=== PATIENT | male | born 1995 | race Caucasian/White ===

== ENCOUNTER 2022-10-02 11:48 | Emergency (ER) | payer SELFPAY ==
[2022-10-02 12:05] VITALS: BP 134/84; PULSE 73; RESP 18; TEMP 36.2; O2SAT 99; BMI 26.1
[2022-10-02 12:17] VITALS: BP 133/78; O2SAT 99
[2022-10-02] MEDS: sodium chloride 0.9% 1,000 ML 999 ML IV (12:20)
--- NOTE | 2022-10-02 12:22 | CTR_ITS ---
PROCEDURE INFORMATION: Exam: CT Abdomen And Pelvis Without Contrast Exam date and time: 10/02/2022 12:58 PM Age: 26 years old Clinical indication: Abdominal pain; Flank; Right; Additional info: Right flank and dysuria TECHNIQUE: Imaging protocol: Computed tomography of the abdomen and pelvis without contrast. Axial, coronal and sagittal reformatted images were created and reviewed. Radiation optimization: All CT scans at this facility use at least one of these dose optimization techniques: automated exposure control; mA and/or kV adjustment per patient size (includes targeted exams where dose is matched to clinical indication); or iterative reconstruction. Other protocol: This patient has received 0 known CTs and 0 known cardiac nuclear medicine studies in the 12 months prior to the current study. COMPARISON: No relevant prior studies available. RADIATION DOSE METRICS: Total DLP (mGy-cm): 795.23 FINDINGS: Liver: Unremarkable. Gallbladder and bile ducts: No radiodense gallstones. No biliary ductal dilatation. Pancreas: Unremarkable. Spleen: Unremarkable. Adrenal glands: Normal. No mass. Kidneys and ureters: Mild right-sided hydroureteronephrosis and perinephric/periureteral stranding, secondary to a 3 mm distal right ureteral calculus (axial image 209 and coronal image 86). Stomach and bowel: No bowel wall thickening. No obstruction. No pneumatosis. Appendix: Normal. Intraperitoneal space: No free fluid. No organized fluid collection. No free air. Vasculature: Unremarkable. No aneurysm. Lymph nodes: No pathologically enlarged lymph nodes. Urinary bladder: Unremarkable as visualized. Reproductive: Unremarkable. Bones/joints: No acute osseous abnormality. Soft tissues: Tiny, fat containing umbilical hernia. CT/CT kidney stone [id number] IMPRESSION: 1. Mild right-sided hydroureteronephrosis and perinephric/periureteral stranding, secondary to a 3 mm distal right ureteral calculus. 2. Additional findings, as above.
--- NOTE | 2022-10-02 12:23 | W.ED.MALEGU ---
Documented by User: LYLE Motta 10/02/22 20:40 HPI - Male Genitourinary General: Chief complaint: Urogenital-Male Stated complaint: urinary pain Time Seen by Provider: 10/02/22 12:12 History of Present Illness: Patient is a 26-year-old male comes to the ED with right flank pain and dysuria. Symptoms started about a week ago. He for started developing right flank pain about a week ago. he says the pain comes in waves and will be 10 out of 10 pain. Currently he says his right flank pain is mild. He has never had a kidney stone before. His father and brother have both had kidney stones. Denies any n/v or fevers. Associated symptoms: Reports dysuria; Deny hematuria, nausea or vomiting Review of Systems Const: Denies: fever(s), chills or fatigue Eyes: Denies: change in vision or eye discomfort ENMT: Denies: throat pain, odynophagia, nasal discharge or nasal congestion Card: Denies: chest pain, palpitations, edema, swelling of feet/ankles, dyspnea on exertion or orthopnea Resp: Denies: dyspnea, productive cough or non-productive cough GI: Denies: abdominal pain, nausea, vomiting, diarrhea, constipation or hematochezia : Reports: flank pain (right flank) and dysuria; Denies: difficulty urinating or hematuria Musc: Denies: neck pain, back pain or extremity swelling Skin/Breast: Denies: rash or new lesions Neuro: Denies: headache(s), numbness in extremities or weakness in extremities [facility] ED PFSH: Medical History (Updated 10/02/22 @ 13:34 by LYLE Motta) No pertinent past medical history Surgical History (Updated 10/02/22 @ 13:30 by LYLE Motta) No pertinent past surgical history Physical Exam Const: COMMON NORMALS: no acute distress, patient oriented x3 and alert GENERAL APPEARANCE: cooperative and comfortable HENMT: COMMON NORMALS: normocephalic HEAD & SCALP: normocephalic MOUTH: Normal oral and palatal mucosa present THROAT: posterior oropharynx normal and uvula midline Neck/C-Spine: COMMON NORMALS: supple GENERAL: Yes normal visual inspection Resp: COMMON NORMALS: normal respiratory effort, No retractions, No use of accessory muscles and clear to auscultation bilaterally AUSCULTATION: clear to auscultation bilaterally Cardio: COMMON NORMALS: regular rate, regular rhythm, S1 normal heart sound present, S2 normal heart sound present, No gallops present (Cardio), No clicks present (Cardio), No murmurs present (Cardio) and Peripheral pulses 2+ throughout RATE: regular rate RHYTHM: regular rhythm HEART SOUNDS: S1 normal heart sound present and S2 normal heart sound present PERIPHERAL PULSES: Peripheral pulses 2+ throughout GI: COMMON NORMALS: Normal to inspection, nondistended, normoactive bowel sounds present, Soft to palpation, non-tender and no masses PALPATION: Yes Soft to palpation : BLADDER/KIDNEY EXAM: Yes CVA tenderness on the right Back/Pelvis: GENERAL BACK: Yes CVA tenderness Extremity: COMMON NORMALS: normal to inspection Neuro: COMMON NORMALS: patient oriented x3 SENSORIUM/ORIENTATION: Yes alert GAIT: Yes Normal gait present Skin: GENERAL SKIN EXAM: dry skin Course Vital Signs: Vital signs: Vital Signs Temperature 97.1 F L 10/02/22 12:05 Pulse Rate 73 10/02/22 12:05 Respiratory Rate 18 10/02/22 12:05 Blood Pressure 118/86 10/02/22 13:30 Pulse Oximetry 98 10/02/22 12:30 Oxygen Delivery Me thod 10/02/22 12:17 MDM - Male Medical Decision Making Patient is a 26-year-old male who comes to the ED with right flank pain. Vitals are stable. Patient appears nontoxic in no acute distress or pain. He has some CVA tenderness but rest of exam is benign. CT of abdomen pelvis shows a 3 mm distal right ureteral stone. I placed an order with case management for patient to be referred to urology for follow-up. He was diagnosed with a kidney stone and stable for discharge home. He was given dose of Toradol here in the ED to help with pain. Strict return to ED precautions given. Patient understood and agreed with plan. Lab Data I reviewed the patient's lab results. 10/02/22 12:10 10/02/22 12:10 Radiology Impressions Abdomen/Pelvis CT 10/02/22 12:22 IMPRESSION: 1. Mild right-sided hydroureteronephrosis and perinephric/periureteral stranding, secondary to a 3 mm distal right ureteral calculus. 2. Additional findings, as above. Laboratory Results WBC 10.2 10^3/uL (4.0-10.0) H 10/02/22 12:10 RBC 4.69 10^6/uL (4.1-5.3) 10/02/22 12:10 Hgb 14.1 g/dL (11.7-16.6) 10/02/22 12:10 Hct 43.0 % (42.0-52.0) 10/02/22 12:10 MCV 91.7 fl (80-94) 10/02/22 12:10 MCH 30.1 pg (28.0-34.0) 10/02/22 12:10 MCHC 32.8 g/dL (30.0-36.0) 10/02/22 12:10 RDW 12.4 % (12.1-15.1) 10/02/22 12:10 Plt Count 293 10^3/cmm (130-400) 10/02/22 12:10 MPV 11.4 fL (7.4-10.4) H 10/02/22 12:10 Neut % (Auto) 56.6 % 10/02/22 12:10 Lymph % (Auto) 31.8 % 10/02/22 12:10 [place] % (Auto) 8.1 % 10/02/22 12:10 Eos % (Auto) 2.6 % 10/02/22 12:10 Baso % (Auto) 0.6 % 10/02/22 12:10 Neut # (Auto) 5.79 10^3/uL (1.8-7.7) 10/02/22 12:10 Lymph # (Auto) 3.3 10^3/uL (0.8-4.8) 10/02/22 12:10 [place] # (Auto) 0.8 10^3/uL (0.2-0.9) 10/02/22 12:10 Eos # (Auto) 0.3 10^3/uL (0.0-0.8) 10/02/22 12:10 Baso # (Auto) 0.1 10^3/uL (0.0-0.1) 10/02/22 12:10 Nucleated RBC % (auto) 0 % 10/02/22 12:10 Nucleated RBCs # 0.0 /100WBC 10/02/22 12:10 Sodium 141 mmol/L (136-145) 10/02/22 12:10 Potassium 4.3 mmol/L (3.5-5.1) 10/02/22 12:10 Chloride 102 mmol/L (98-107) 10/02/22 12:10 Carbon Dioxide 28 mmol/L (22-29) 10/02/22 12:10 Anion Gap 15.3 (5-19) 10/02/22 12:10 BUN 14 mg/dL (6-20) 10/02/22 12:10 Creatinine 1.0 mg/dL (0.7-1.2) 10/02/22 12:10 GFR Calculation 91.8 mL/min (90-130) 10/02/22 12:10 Glucose 116 mg/dL (65-115) H 10/02/22 12:10 Calculated Osmolality 293 mOsm/kg (285-295) 10/02/22 12:10 Calcium 9.6 mg/dL (8.5-10.5) 10/02/22 12:10 Total Bilirubin 0.3 mg/dL (0.15-1.2) 10/02/22 12:10 AST 16 U/L (0-40) 10/02/22 12:10 ALT 16 U/L (0-41) 10/02/22 12:10 Alkaline Phosphatase 87 U/L (40-130) 10/02/22 12:10 Total Protein 6.8 g/dL (6.6-8.7) 10/02/22 12:10 Albumin 4.3 g/dL (3.5-5.2) 10/02/22 12:10 Globulin 2.5 g/dL (1.3-4.6) 10/02/22 12:10 Lipase 26 U/L (13-60) 10/02/22 12:10 Urine Color Yellow (Yellow) 10/02/22 12:10 Urine Appearance Clear (CLEAR) 10/02/22 12:10 Urine pH 5 (5-7) 10/02/22 12:10 Ur Specific [place] 1.015 (1.005-1.030) 10/02/22 12:10 Urine Protein Neg (Negative) 10/02/22 12:10 Urine Glucose (UA) Norm (Normal) 10/02/22 12:10 Urine Ketones Negative (Negative) 10/02/22 12:10 Urine Blood Neg (Negative) 10/02/22 12:10 Urine Nitrate Negative (Negative) 10/02/22 12:10 Urine Bilirubin Neg (Negative) 10/02/22 12:10 Urine Urobilinogen Norm mg/dL (Negative) 10/02/22 12:10 Ur Leukocyte Esterase Negative (Negative) 10/02/22 12:10 Discharge Plan Discharge Patient Disposition: Home Clinical Impression: Kidney stone on right side Condition: Stable Prescriptions: No Action clobetasol 0.05 % cream 1 applic TOPICAL BID Rx Instructions: until healed triamcinolone acetonide 0.1 % cream 1 applic TOPICAL BID Discharge Orders: Discharge ED (Routine); Ordered 10/02/22 Ordered By: Juan Carlos Jang Discharge Diet: Regular Discharge Activity: Increase activity as tolerated Patient Instructions: Kidney Stones (ED) Activity Restrictions/Additional Instructions: Follow-up with medical provider as directed. Case management should be contacting you in the next several days to set up an appointment with Dr. Wang the urologist. Strain urine to catch stone and drink lots of fluid to stay hydrated and help pass stone. Take medications as prescribed. You can take ibuprofen or Aleve for any pain or fevers. Return to the ER or your medical provider if condition worsens. Please read and understand discharge instructions. If any questions, please ask. Coding Level of Care Code ED Armature Winder Helper Repair for Chg Fwd Exam Comprehensive Documented by User: Ramy Jean DO 10/03/22 06:10 HPI - Male Genitourinary General: Chief complaint: Urogenital-Male Stated complaint: urinary pain Time Seen by Provider: 10/02/22 12:12 PFSH ED PFSH: Medical History (Updated 10/02/22 @ 13:34 by LYLE Motta) No pertinent past medical history Surgical History (Updated 10/02/22 @ 13:30 by LYLE Motta) No pertinent past surgical history Course Vital Signs: Vital signs: Vital Signs Temperature 97.1 F L 10/02/22 12:05 Pulse Rate 73 10/02/22 12:05 Respiratory Rate 18 10/02/22 12:05 Blood Pressure 118/86 10/02/22 13:30 Pulse Oximetry 98 10/02/22 12:30 Oxygen Delivery Me thod 10/02/22 12:17 MDM - Male Medical Decision Making Patient is a 26-year-old male who comes to the ED with right flank pain. Vitals are stable. Patient appears nontoxic in no acute distress or pain. He has some CVA tenderness but rest of exam is benign. CT of abdomen pelvis shows a 3 mm distal right ureteral stone. I placed an order with case management for patient to be referred to urology for follow-up. He was diagnosed with a kidney stone and stable for discharge home. He was given dose of Toradol here in the ED to help with pain. Strict return to ED precautions given. Patient understood and agreed with plan. Chart reviewed and patient discussed with midlevel. Agree with assessment and plan. Lab Data 10/02/22 12:10 10/02/22 12:10 Radiology Impressions Abdomen/Pelvis CT 10/02/22 12:22
[2022-10-02 12:28] LABS: Add Urine Microscopic? NO; Charge for UA Resulting for Rev
[2022-10-02 12:30] VITALS: BP 117/74; O2SAT 98
[2022-10-02 12:32] LABS: Basophils # 0.1 10^3/uL (0.0-0.1); Basophils % 0.6 %; Eosinophils # 0.3 10^3/uL (0.0-0.8); Eosinophils % 2.6 %; Hemoglobin 14.1 g/dL (11.7-16.6); Lymphocytes # 3.3 10^3/uL (0.8-4.8); Lymphocytes % 31.8 %; Mean Corpuscular HGB Conc 32.8 g/dL (30.0-36.0); Mean Corpuscular Hemoglobin 30.1 pg (28.0-34.0); Mean Corpuscular Volume 91.7 fl (80-94); Mean Platelet Volume 11.4 fL (7.4-10.4); Monocytes # 0.8 10^3/uL (0.2-0.9); Monocytes % 8.1 %; Neutrophils # 5.79 10^3/uL (1.8-7.7); Neutrophils % 56.6 %; Nucleated Red Blood Cells % 0 %; Platelet Count 293 10^3/cmm (130-400); Red Blood Count 4.69 10^6/uL (4.1-5.3); Red Cell Distribution Width 12.4 % (12.1-15.1); White Blood Count 10.2 10^3/uL (4.0-10.0)
[2022-10-02 12:35] LABS: Bilirubin Urine Neg (Negative); Blood Urine Neg (Negative); Glucose Urine UA Norm (Normal); Ketones Urine Negative (Negative); Leukocyte Esterase Urine Negative (Negative); Nitrate Urine Negative (Negative); Protein Urine Neg (Negative); Specific Gravity, Urine 1.015 (1.005-1.030); Urine Appearance Clear (CLEAR); Urine Color Yellow (Yellow); Urobilinogen Urine Norm (Negative); pH Urine 5 (5-7)
[2022-10-02 12:42] LABS: Alanine Aminotransferase 16 U/L (0-41); Albumin Level 4.3 g/dL (3.5-5.2); Alkaline Phosphatase 87 U/L (40-130); Anion Gap 15.3 (5-19); Aspartate Amino Transferase 16 U/L (0-40); Blood Urea Nitrogen 14 mg/dL (6-20); Calcium 9.6 mg/dL (8.5-10.5); Carbon Dioxide 28 mmol/L (22-29); Chloride 102 mmol/L (98-107); Creatinine Clr Calc Pharmacy 150.4391; Globulin 2.5 g/dL (1.3-4.6); Glomerular Filtration Rate 91.8 mL/min (90-130); Glucose 116 mg/dL (65-115); Lipase 26 U/L (13-60); Osmolality Calculated 293 mOsm/kg (285-295); Potassium 4.3 mmol/L (3.5-5.1); Sodium 141 mmol/L (136-145); Total Bilirubin 0.3 mg/dL (0.15-1.2); Total Protein 6.8 g/dL (6.6-8.7)
[2022-10-02 13:00] VITALS: BP 117/74
[2022-10-02 13:30] VITALS: BP 118/86
[2022-10-02] MEDS: ketorolac 30 mg/mL INJ IVP (13:38)
--- NOTE | 2022-10-05 09:47 | DCPLANNER ---
Addendum entered by Chelsea Arias 10/06/22 15:00: manager garage received the following message from the urology clinic regarding follow up appointment: Pt. states he is on his way to [place] and will not be home for 6 months. Will contact PCP at that time. Original Note: manager garage had message to schedule a follow up appointment for patient with urology. manager garage sent patients information to the front office staff at urology. Patients information will be printed and reviewed. Clinic will call patient with appointment information.
== END 2022-10-02 13:44 | disposition home or self-care (01) ==
PROVIDERS: Family Medicine; Emergency Provider Physician Assistant
DX: N13.2 Hydronephrosis with renal and ureteral calculous obstruction (principal)
CPT/HCPCS: 74176; 80053; 81003; 83690; 85025; 96361; 96374; 99285; J1885; J7030